=== PATIENT | male | born 2000 | race Caucasian/White ===

== ENCOUNTER 2025-06-22 09:57 | Emergency (ER) | payer OTHER, SELFPAY ==
[2025-06-22 10:02] VITALS: BP 130/79
--- NOTE | 2025-06-22 10:55 | ED.GENMED ---
History of Present Illness
General
Chief Complaint: Headache
Source: patient
Exam Limitations: none
Time Seen by Provider: 06/22/25 10:39
History of Present Illness
History of Present Illness:
24yoM with no significant past medical history presenting for evaluation of recurrent sinus and head discomfort. Symptoms have been ongoing for the past several months and are intermittent. He reports a pressure in his right maxillary sinus, nasal
drainage, a 'weird feeling' and cold sensation on the right side of his head, and floaters in the right eye. These symptoms seem to occur in conjunction with each other. Symptoms are worse if he sleeps on his right side. The floaters have been
ongoing for at least 3 years. He was seen at [facility] ED when his floaters initially started and had a workup including a CT scan of the head with contrast which was reportedly normal. He felt a lump on his scalp yesterday. He is mainly worried that
he has a brain tumor. He denies any visual field cut, diplopia, blurred vision, headache, dizziness, weakness, imbalance.
Phy Exam
General Physical Exam
General Presentation: well appearing and no apparent distress
General Skin: warm and dry
General Habitus: normal
General Mental: alert
ENT Exam
ENT Exam: TM's normal, neck supple, normocephalic and other (Small superficial lump to R parietal scalp)
Eye Exam
Eye Exam: PERRL, EOMI, conjunctiva normal, visual renee normal and other (Intraocular pressure 17mmHg in R eye, 18mmHg in L eye)
Right 20/: 20
Left 20/: 20
Pulmonary Exam
Pulmonary Exam: no respiratory distress
Neurological Exam
Neurological Exam: alert
[place] Coma Scale
Eye Opening: Spontaneous
Verbal Response: Oriented
Motor Response: Obeys Commands
GCS Total Score: 15
Skin Exam
Skin Exam: normal color and warm/dry
Psychiatric Exam
Psychiatric Exam: normal mood/affect
Course
Orders/Labs/Results
Orders:
Orders
06/22/25 10:54
CT Head W/o Iv Contrast Urgent
Comment:
Reason For Exam: recurrent headache
CT Sinuses W/o Iv Contrast Urgent
Comment:
Reason For Exam: R maxillary pain x several months
Visual Acuity- Treatment ONCE
Vital Signs
Initial and Last Documented VS:
Initial Vital Signs
Temp Pulse Resp BP Pulse Ox
98.0 F 76 18 130/79 100
06/22/25 10:02 06/22/25 10:02 06/22/25 10:02 06/22/25 10:02 06/22/25 10:02
Last Documented Vital Signs
Temp Pulse Resp BP Pulse Ox
98.0 F 76 18 130/79 100
06/22/25 10:02 06/22/25 10:02 06/22/25 10:02 06/22/25 10:02 06/22/25 10:58
MDM/Problems Addressed
Differential Diagnosis Includes:
24yoM here with R maxillary/head discomfort that has been intermittent x several months. Associated with R eye floaters and sinus pressure. VSS. He is well-appearing in no distress. Exam reassuring. Visual acuity 20/20 bilaterally and intraocular
pressures normal. Differential diagnosis includes: Sinusitis, migraines, eyestrain, brain mass, less likely cluster headache
Initial ED plan: Check CT head and sinuses.
*Pulse Oximetry
SaO2: 100
Oxygen Mode of Delivery: Room air
Patient hypoxic: no
*Critical Care Note
Total Time (30-74mins, 75-104mins- exclusive of procedures): Not Applicable
Update Note
Update Note:
Imaging negative for acute findings. Low lying cerebellar tonsils noted as well as a deviated septum. Unclear etiology of symptoms. He will likely benefit from outpatient MRI. He was advised to f/u with his PCP and also instructed to see an
hydrogen cell tender for a formal eye exam. He was given contact information for neurology and ENT as well. Patient and mother in agreement with plan and he was discharged in stable condition.
ED Attending Note
-
Portions of this chart may have been created with voice recognition software.� Occasional wrong word or��sound alike� substitutions may have occurred due to the inherent limitations of voice recognition software.
Discharge Plan
Departure
Patient Disposition: Home (Routine Discharge)
Date of Disposition: 06/22/25
Time of Disposition: 12:04
Patient with high blood pressure during this ER visit?: No
Discharge Problem:
Right-sided headache, Deviated septum
Instructions: Headache, Adult (DC)
Referrals:
[facility] [Provider Group]
Stas Mary MD [Active, Neurology]
NONE,* [Family Provider, Internal Medicine]
Haja Sen MD [Active, ENT]
Activity Restrictions/Additional Instructions:
Please call today to schedule a follow-up appointment with a family doctor and schedule an eye exam. You were also given contact information for neurology and ENT.
Return to the ER with any new or worsening symptoms.
Interventions
Interventions:
*Risk Screen - Suicide Last Done: 06/22/25 10:02
*General Assessment Last Done: 06/22/25 10:02
*Nursing Disposition Last Done: 06/22/25 12:26
ED- Neurological Assessment Last Done: 06/22/25 10:15
Discharge Date and Time
Discharge Date/Time: 06/22/25 12:26
Print Language: CAMBODIAN
== END 2025-06-22 12:26 | disposition home or self-care (01) ==
LOC: EMR 09:57
PROVIDERS: EMERGENCY PHYSICIAN Emergency Medicine
DX: R51.9 Headache, unspecified (principal); J34.2 Deviated nasal septum; H43.391 Other vitreous opacities, right eye
CPT/HCPCS: 99284; 70450; 70486